=== PATIENT | female | born 1975 | race Two or more races ===

== ENCOUNTER 2024-07-03 17:46 | Emergency (ER) | payer MEDICAID ==
[~2024-07-03] VITALS: Ht 162.6 cm; Wt 92.5 kg
[2024-07-03 18:24] VITALS: TEMP 98.1
[2024-07-03 19:18] LABS: BASOPHILS % (AUTO) 0.4 % (0.0-2.0); EOSINOPHILS # (AUTO) 0.1 K/uL (0.0-0.7); EOSINOPHILS % (AUTO) 1.3 % (0.0-6.0); HEMATOCRIT 40 % (33-45); HEMOGLOBIN 13.6 g/dL (11.5-14.8); LYMPHOCYTES # (AUTO) 1.9 K/uL (0.8-4.8); LYMPHOCYTES % (AUTO) 27.6 % (20.0-44.0); MEAN CORPUSCULAR HEMOGLOBIN 31 PG (26.0-33.0); MEAN CORPUSCULAR HGB CONC 34 g/dl (31.0-36.0); MEAN CORPUSCULAR VOLUME 91 fL (82-100); MONOCYTES # (AUTO) 0.4 K/uL (0.1-1.30); NEUTROPHILS # (AUTO) 4.5 K/uL (1.8-8.9); NEUTROPHILS % (AUTO) 64.7 % (43.0-81.0); PLATELET COUNT (AUTO) 265 K/uL (150-450); RED BLOOD CELL COUNT(AUTO) 4.36 MIL/uL (4.0-5.2); RED CELL DISTRIBUTION WIDTH 13.1 % (11.5-15.0); WHITE BLOOD COUNT (AUTO) 6.9 K/uL (4.3-11.0)
[2024-07-03] MEDS ORDERED: MECLIZINE HCL 25 MG TABLET ONE (19:18)
[2024-07-03] MEDS: MECLIZINE HCL 12.5 MG TABLET PO ONE (19:22)
[2024-07-03 19:26] LABS: CALCIUM, SERUM 8.9 mg/dL (8.5-10.1); CREATININE 0.7 mg/dL (0.6-1.3)
[2024-07-03] MEDS ORDERED: MECL-159 PO (19:55)
[2024-07-03 20:12] VITALS: BP 125/80; O2SAT 99
== END 2024-07-03 20:13 | disposition home or self-care (01) ==
LOC: ER 17:51
DX: R42 Dizziness and giddiness (principal); R55 Syncope and collapse; I10 Essential (primary) hypertension
CPT/HCPCS: 99284; 93005; 85025; 80048; 36415; J8597